=== PATIENT | female | born 1990 | race Caucasian/White ===

== ENCOUNTER 2020-08-08 14:02 | Outpatient (CLI) | payer OTHER | END 2020-08-08 14:03 | disposition home or self-care (01) | LOC: CTENTCT 14:02 | PROVIDERS: ATTEND Specialist | DX: J32.9 Chronic sinusitis, unspecified (principal) | CPT/HCPCS: 70486 ==

== ENCOUNTER 2022-09-30 07:25 | Day surgery (SDC) | payer BC ==
[2022-09-30] MEDS ORDERED: Ketamine 50 MG/ML (10ML VIAL) ONE (10:09)
[2022-09-30] MEDS ORDERED: fentaNYL PF 100 MCG/2 ML SYRINGE ONE (10:09)
[2022-09-30] MEDS ORDERED: Ondansetron PF 4 MG/2 ML Vial ONE (10:13)
[2022-09-30] MEDS ORDERED: PROPOFOL 200 MG/20 ML VIAL ONE (10:13)
[2022-09-30] MEDS ORDERED: ePHEDrine 50 MG/ML VIAL ONE (10:13)
[2022-09-30] MEDS ORDERED: Dexamethasone 20 MG/5 ML VIAL ONE (10:13)
[2022-09-30] MEDS ORDERED: FENTANYL 50 MCG/ML 1 ML VIAL ONE ×2 (10:48→12:06)
[2022-09-30] MEDS ORDERED: HYDROcodone/Acetaminophen 7.5/325 mg Tablet ONE (12:49)
[2022-09-30] MEDS ORDERED: Hydrocodone-Acetamin 15 ML UDCUP ONE (12:50)
== END 2022-09-30 14:16 | disposition home or self-care (01) ==
LOC: SDC 07:25
PROVIDERS: ATTEND Specialist
PROC: 0CTPXZZ Resection of Tonsils, External Approach (ICD-10-PCS; principal; 2022-09-30)
PROC: 0CTQXZZ Resection of Adenoids, External Approach (ICD-10-PCS; principal; 2022-09-30)
DX: J03.91 Acute recurrent tonsillitis, unspecified (principal); J35.01 Chronic tonsillitis; J35.8 Other chronic diseases of tonsils and adenoids; J30.2 Other seasonal allergic rhinitis; F17.200 Nicotine dependence, unspecified, uncomplicated; Z79.2 Long term (current) use of antibiotics; Z79.899 Other long term (current) drug therapy; Z88.2 Allergy status to sulfonamides; Z91.011 Allergy to milk products
CPT/HCPCS: 88304; J1100; J2405; J2704; J3010; J3490

== ENCOUNTER 2023-08-17 11:52 | Outpatient (CLI) | payer BC | END 2023-08-17 11:53 | disposition home or self-care (01) | LOC: BICRAD 11:52 | PROVIDERS: ATTEND Family Medicine | DX: M79.672 Pain in left foot (principal) ==